=== PATIENT | female | born 1950 | race Caucasian/White ===

== ENCOUNTER 2016-10-19 15:47 | Emergency (ER) | payer MEDICARE, OTHER ==
[~2016-10-19] VITALS: Ht 160 cm; Wt 63.6 kg
[~2016-10-19 15:47] MED LIST: ARIP5TAB9 PO; BUSP15 PO; CALC1TAB84 PO; CITA10TA68 PO; FOLI1 PO; LEVO150 PO; MULT-29 PO; PANT40TA25 PO
[2016-10-19] MEDS ORDERED: GABA-533 PO (16:41)
[2016-10-19] MEDS ORDERED: NAPR250T2 PO (16:41)
[2016-10-19] MEDS ORDERED: CITA20TA9 PO (16:57)
[2016-10-19] MEDS ORDERED: HYDROCODONE/ACETAMINOPHEN 10-325 MG TABLET PO ONE (17:00)
[2016-10-19 18:06] VITALS: BP 121/86
== END 2016-10-19 18:07 | disposition home or self-care (01) ==
LOC: EMS 15:49
DX: S73.101A Unspecified sprain of right hip, initial encounter (principal); J44.9 Chronic obstructive pulmonary disease, unspecified; E03.9 Hypothyroidism, unspecified; G89.29 Other chronic pain; F17.210 Nicotine dependence, cigarettes, uncomplicated; F19.90 Other psychoactive substance use, unspecified, uncomplicated; Z88.0 Allergy status to penicillin
CPT/HCPCS: 99283

== ENCOUNTER 2016-10-19 22:46 | Emergency (ER) | payer MEDICARE, OTHER ==
[~2016-10-19] VITALS: Ht 152.4 cm; Wt 52.0 kg
[~2016-10-19 22:46] MED LIST changes: +CITA20TA9 PO; +GABA-533 PO; +NAPR250T2 PO
[2016-10-20] MEDS ORDERED: GABAPENTIN 400 MG CAPSULE PO ONE (04:15)
[2016-10-20] MEDS ORDERED: ONDANSETRON HCL 4 MG TABLET PO ONE (04:15)
[2016-10-20 05:31] VITALS: BP 122/78
== END 2016-10-20 05:42 | disposition home or self-care (01) ==
LOC: EMS 22:50
DX: M16.11 Unilateral primary osteoarthritis, right hip (principal); M79.604 Pain in right leg; J44.9 Chronic obstructive pulmonary disease, unspecified; E03.9 Hypothyroidism, unspecified; F17.210 Nicotine dependence, cigarettes, uncomplicated; F15.90 Other stimulant use, unspecified, uncomplicated; Z88.0 Allergy status to penicillin; Z59.0 Homelessness
CPT/HCPCS: 99283; Q0162

== ENCOUNTER 2016-10-20 16:06 | Emergency (ER) | payer MEDICARE, OTHER ==
[~2016-10-20] VITALS: Ht 149.9 cm; Wt 50.0 kg
[2016-10-20 19:40] VITALS: BP 118/78
[2016-10-20] MEDS ORDERED: ONDANSETRON HCL 4 MG TABLET PO ONE (19:45)
[2016-10-20] MEDS ORDERED: HYDROCODONE/ACETAMINOPHEN 5-325 MG TABLET PO ONE (19:45)
== END 2016-10-20 20:13 | disposition home or self-care (01) ==
LOC: EMS 16:10
DX: M54.5 Low back pain (principal); G89.29 Other chronic pain; J44.9 Chronic obstructive pulmonary disease, unspecified; E03.9 Hypothyroidism, unspecified; F17.210 Nicotine dependence, cigarettes, uncomplicated; F15.90 Other stimulant use, unspecified, uncomplicated; Z88.0 Allergy status to penicillin
CPT/HCPCS: 99283; Q0162

== ENCOUNTER 2016-10-26 19:38 | Emergency (ER) | payer MEDICARE, OTHER ==
[~2016-10-26] VITALS: Ht 157.5 cm; Wt 61.4 kg
[~2016-10-26 19:38] MED LIST changes: -CITA10TA68 PO; -PANT40TA25 PO
[2016-10-26] MEDS ORDERED: LORazepam 2 MG TABLET PO ONE (21:00)
[2016-10-26] MEDS ORDERED: ONDANSETRON HCL 4 MG TABLET PO ONE (21:00)
[2016-10-26 21:35] LABS: BASOPHILS % (AUTO) 0.7 % (0.0-2.0); EOSINOPHILS % (AUTO) 0.3 % (1.0-6.0); HEMATOCRIT 35.3 % (36-46); LYMPHOCYTES # (AUTO) 3.6 K/uL (1.0-4.8); LYMPHOCYTES % (AUTO) 52.8 % (22.0-44.0); MEAN CORPUSCULAR HEMOGLOBIN 31.8 pg (26.0-34.0); MEAN CORPUSCULAR HGB CONC 34.1 G/dL (31.0-37.0); MEAN CORPUSCULAR VOLUME 93 fL (80-100); MONOCYTES # (AUTO) 0.6 K/uL (0.1-1.0); MONOCYTES % (AUTO) 8.6 % (2.0-9.0); NEUTROPHILS # (AUTO) 2.6 K/uL (1.8-7.7); NEUTROPHILS % (AUTO) 37.6 % (40.0-70.0); PLATELET COUNT (AUTO) 260 K/uL (150-450); RED BLOOD CELL COUNT(AUTO) 3.78 MIL/uL (4.00-5.20); RED CELL DISTRIBUTION WIDTH 17.8 % (11.5-14.5); WHITE BLOOD COUNT (AUTO) 6.8 K/uL (4.5-11.0)
[2016-10-26 21:38] LABS: CALCIUM, TOTAL 8.7 mg/dL (8.8-10.5); CREATININE 1.11 mg/dL (0.60-1.30); POTASSIUM 4.1 mmol/L (3.5-5.1)
[2016-10-26 21:52] LABS: ALBUMIN 3.6 g/dL (3.4-5.0); BILIRUBIN,TOTAL 0.4 mg/dL (0.1-1.0); TOTAL PROTEIN, SERUM 7.6 g/dL (6.4-8.2)
[2016-10-26 22:36] VITALS: BP 122/82
== END 2016-10-26 22:38 | disposition home or self-care (01) ==
LOC: EMS 19:41
DX: F41.9 Anxiety disorder, unspecified (principal); R00.2 Palpitations; F10.229 Alcohol dependence with intoxication, unspecified; R11.0 Nausea; R19.7 Diarrhea, unspecified; J44.9 Chronic obstructive pulmonary disease, unspecified; F17.210 Nicotine dependence, cigarettes, uncomplicated; F19.90 Other psychoactive substance use, unspecified, uncomplicated; E03.9 Hypothyroidism, unspecified; Z88.0 Allergy status to penicillin; Y90.5 Blood alcohol level of 100-119 mg/100 ml
CPT/HCPCS: 36415; 80053; 84484; 85025; 93005; 99285; 99406; G0480; Q0162

== ENCOUNTER 2016-10-29 05:41 | Emergency (ER) | payer MEDICARE, OTHER ==
[~2016-10-29] VITALS: Ht 152.4 cm; Wt 54.5 kg
[2016-10-29 06:22] LABS: GLUCOSE,POINT OF CARE 94 MG/DL (70-110)
[2016-10-29 06:47] LABS: BASOPHILS # (AUTO) 0.05 K/uL (0.00-0.20); BASOPHILS % (AUTO) 0.7 % (0.0-2.0); EOSINOPHILS # (AUTO) 0.02 K/uL (0.00-0.70); EOSINOPHILS % (AUTO) 0.21 % (1.0-6.0); HEMATOCRIT 35.5 % (36-46); HEMOGLOBIN 11.8 g/dL (12.0-16.0); LYMPHOCYTES # (AUTO) 2.9 K/uL (1.0-4.8); LYMPHOCYTES % (AUTO) 40.1 % (22.0-44.0); MEAN CORPUSCULAR HEMOGLOBIN 31.7 pg (26.0-34.0); MEAN CORPUSCULAR HGB CONC 33.3 G/dL (31.0-37.0); MEAN CORPUSCULAR VOLUME 95 fL (80-100); MONOCYTES # (AUTO) 0.7 K/uL (0.1-1.0); MONOCYTES % (AUTO) 9.1 % (2.0-9.0); NEUTROPHILS # (AUTO) 3.6 K/uL (1.8-7.7); PLATELET COUNT (AUTO) 226 K/uL (150-450); RED BLOOD CELL COUNT(AUTO) 3.74 MIL/uL (4.00-5.20); RED CELL DISTRIBUTION WIDTH 17.8 % (11.5-14.5); WHITE BLOOD COUNT (AUTO) 7.2 K/uL (4.5-11.0)
[2016-10-29 06:55] LABS: CALCIUM, TOTAL 8.3 mg/dL (8.8-10.5); POTASSIUM 3.7 mmol/L (3.5-5.1)
[2016-10-29 07:01] LABS: ALBUMIN 3.2 g/dL (3.4-5.0); BILIRUBIN,TOTAL 0.4 mg/dL (0.1-1.0); TOTAL PROTEIN, SERUM 7.1 g/dL (6.4-8.2)
[2016-10-29] MEDS ORDERED: ONDANSETRON HCL 4 MG TABLET PO ONE (08:00)
[2016-10-29] MEDS ORDERED: LORazepam 1 MG TABLET PO ONE (08:00)
[2016-10-29 10:15] VITALS: BP 122/78
== END 2016-10-29 10:19 | disposition home or self-care (01) ==
LOC: EMS 05:45
DX: F10.229 Alcohol dependence with intoxication, unspecified (principal); J44.9 Chronic obstructive pulmonary disease, unspecified; E03.9 Hypothyroidism, unspecified; F17.210 Nicotine dependence, cigarettes, uncomplicated; F19.90 Other psychoactive substance use, unspecified, uncomplicated; Z88.0 Allergy status to penicillin; Y90.7 Blood alcohol level of 200-239 mg/100 ml
CPT/HCPCS: 36415; 80053; 80307; 82962; 85025; 99284; G0480; Q0162

== ENCOUNTER 2016-11-21 07:26 | Emergency (ER) | payer MEDICARE, OTHER ==
[~2016-11-21] VITALS: Ht 154.9 cm; Wt 54.5 kg
[~2016-11-21 07:26] MED LIST changes: -ARIP5TAB9 PO; +ASPI-1061 PO; +ATOR20TA86 PO; -BUSP15 PO; -CALC1TAB84 PO; -CITA20TA9 PO; -FOLI1 PO; -GABA-533 PO; -LEVO150 PO; +LEVO50TA4 PO; -MULT-29 PO; +MULT-71 PO; -NAPR250T2 PO; +OMEP20 PO
[2016-11-21] MEDS ORDERED: TraMADol HCL 50 MG TABLET PO ONE (07:45)
[2016-11-21] MEDS ORDERED: GABA-533 PO (07:49)
[2016-11-21 08:00] VITALS: BP 128/60
== END 2016-11-21 08:32 | disposition home or self-care (01) ==
LOC: EMS 07:29
DX: S20.212A Contusion of left front wall of thorax, initial encounter (principal); F41.9 Anxiety disorder, unspecified; F10.20 Alcohol dependence, uncomplicated; E03.9 Hypothyroidism, unspecified; J44.9 Chronic obstructive pulmonary disease, unspecified; F17.210 Nicotine dependence, cigarettes, uncomplicated; G89.29 Other chronic pain; F19.90 Other psychoactive substance use, unspecified, uncomplicated; Z88.6 Allergy status to analgesic agent; Z79.82 Long term (current) use of aspirin; Z88.0 Allergy status to penicillin; V09.9XXA Pedestrian injured in unspecified transport accident, initial encounter; Y93.89 Activity, other specified; Y92.810 Car as the place of occurrence of the external cause; Y99.8 Other external cause status
CPT/HCPCS: 99283; 99406

== ENCOUNTER 2016-12-05 10:48 | Emergency (ER) | payer MEDICARE, OTHER ==
[~2016-12-05] VITALS: Ht 149.9 cm; Wt 54.5 kg
[~2016-12-05 10:48] MED LIST changes: +GABA-533 PO; -MULT-71 PO; +MULT1TAB70 PO
[2016-12-05 11:56] LABS: BASOPHILS # (AUTO) 0.07 K/uL (0.00-0.20); BASOPHILS % (AUTO) 0.7 % (0.0-2.0); EOSINOPHILS # (AUTO) 0.14 K/uL (0.00-0.70); EOSINOPHILS % (AUTO) 1.41 % (1.0-6.0); HEMATOCRIT 34.2 % (36-46); HEMOGLOBIN 11.2 g/dL (12.0-16.0); LYMPHOCYTES # (AUTO) 1.5 K/uL (1.0-4.8); LYMPHOCYTES % (AUTO) 15.4 % (22.0-44.0); MEAN CORPUSCULAR HEMOGLOBIN 31.6 pg (26.0-34.0); MEAN CORPUSCULAR HGB CONC 32.7 G/dL (31.0-37.0); MEAN CORPUSCULAR VOLUME 97 fL (80-100); MONOCYTES # (AUTO) 0.6 K/uL (0.1-1.0); MONOCYTES % (AUTO) 6.6 % (2.0-9.0); NEUTROPHILS # (AUTO) 7.4 K/uL (1.8-7.7); PLATELET COUNT (AUTO) 404 K/uL (150-450); RED BLOOD CELL COUNT(AUTO) 3.53 MIL/uL (4.00-5.20); RED CELL DISTRIBUTION WIDTH 20.1 % (11.5-14.5); WHITE BLOOD COUNT (AUTO) 9.7 K/uL (4.5-11.0)
[2016-12-05] MEDS ORDERED: SODIUM CHLORIDE 0.9% 1,000 ML IV ONE (12:00)
[2016-12-05 12:05] LABS: CALCIUM, TOTAL 8.7 mg/dL (8.8-10.5); CREATININE 0.98 mg/dL (0.60-1.30)
[2016-12-05 12:10] LABS: ALBUMIN 2.7 g/dL (3.4-5.0); BILIRUBIN,TOTAL 0.5 mg/dL (0.1-1.0); TOTAL PROTEIN, SERUM 7.6 g/dL (6.4-8.2)
[2016-12-05 12:20] LABS: APPEARANCE,URINE CLOUDY (CLEAR); GLUCOSE, URINE (UA) NEGATIVE (NEGATIVE); KETONES,URINE NEGATIVE (NEGATIVE); LEUKOCYTE ESTERASE ,URINE MODERATE (NEGATIVE); OCCULT BLOOD,URINE NEGATIVE (NEGATIVE); PROTEIN,URINE TRACE (NEGATIVE)
[2016-12-05 12:24] LABS: ADD UA MICROSCOPIC YES
[2016-12-05 12:29] LABS: SQUAMOUS EPITHELIAL CELL,UR Few /LPF (None Seen)
[2016-12-05 12:31] LABS: RBC MORPHOLOGY COMMENT ABNORMAL RBC MORPH
[2016-12-05 17:03] VITALS: BP 149/67
== END 2016-12-05 18:39 | disposition home or self-care (01) ==
LOC: EMS 10:50
DX: F10.229 Alcohol dependence with intoxication, unspecified (principal); J44.9 Chronic obstructive pulmonary disease, unspecified; E03.9 Hypothyroidism, unspecified; F19.10 Other psychoactive substance abuse, uncomplicated; F17.210 Nicotine dependence, cigarettes, uncomplicated; Z79.82 Long term (current) use of aspirin; Z88.0 Allergy status to penicillin; Z88.6 Allergy status to analgesic agent
CPT/HCPCS: 36415; 70450; 80053; 80307; 81001; 82962; 85025; 85730; 87077; 87086; 87186; 93005; 96360; 99285; G0480; J7030

== ENCOUNTER 2017-01-06 10:26 | Emergency (ER) | payer MEDICARE ==
[~2017-01-06] VITALS: Ht 149.9 cm; Wt 45.5 kg
[~2017-01-06 10:26] MED LIST changes: -ASPI-1061 PO; +ASPI81TA33 PO
[2017-01-06 11:34] LABS: BASOPHILS % (AUTO) 0.5 % (0.0-2.0); EOSINOPHILS % (AUTO) 0.1 % (1.0-6.0); HEMATOCRIT 36.3 % (36-46); HEMOGLOBIN 12.1 g/dL (12.0-16.0); LYMPHOCYTES # (AUTO) 1.9 K/uL (1.0-4.8); LYMPHOCYTES % (AUTO) 19.2 % (22.0-44.0); MEAN CORPUSCULAR HEMOGLOBIN 32.6 pg (26.0-34.0); MEAN CORPUSCULAR HGB CONC 33.4 G/dL (31.0-37.0); MEAN CORPUSCULAR VOLUME 98 fL (80-100); MONOCYTES # (AUTO) 0.3 K/uL (0.1-1.0); MONOCYTES % (AUTO) 2.7 % (2.0-9.0); NEUTROPHILS # (AUTO) 7.7 K/uL (1.8-7.7); NEUTROPHILS % (AUTO) 77.5 % (40.0-70.0); PLATELET COUNT (AUTO) 267 K/uL (150-450); RED BLOOD CELL COUNT(AUTO) 3.72 MIL/uL (4.00-5.20); RED CELL DISTRIBUTION WIDTH 19.7 % (11.5-14.5); WHITE BLOOD COUNT (AUTO) 9.9 K/uL (4.5-11.0)
[2017-01-06 11:45] LABS: INR 0.9 (0.9-1.1); PROTHROMBIN TIME 9.7 SEC (9.4-11.6)
[2017-01-06] MEDS ORDERED: SODIUM CHLORIDE 0.9% 1,000 ML IV ONE (11:45)
[2017-01-06] MEDS ORDERED: DONNATAL/LIDOCAINE/MAALOX 55 ML BOTTLE PO ONE (11:45)
[2017-01-06] MEDS ORDERED: ONDANSETRON HCL 4 MG/2 ML VIAL IVP ONE (11:45)
[2017-01-06 11:54] LABS: CALCIUM, TOTAL 9.3 mg/dL (8.8-10.5); CREATININE 1.02 mg/dL (0.60-1.30); POTASSIUM 3.7 mmol/L (3.5-5.1)
[2017-01-06 11:57] LABS: ALBUMIN 2.8 g/dL (3.4-5.0); BILIRUBIN,TOTAL 0.7 mg/dL (0.1-1.0); TOTAL PROTEIN, SERUM 7.1 g/dL (6.4-8.2)
[2017-01-06 12:09] LABS: RBC MORPHOLOGY COMMENT ABNORMAL RBC MORPH
[2017-01-06 13:04] LABS: APPEARANCE,URINE CLOUDY (CLEAR); GLUCOSE, URINE (UA) NEGATIVE (NEGATIVE); KETONES,URINE >=80 mg/dL (NEGATIVE); LEUKOCYTE ESTERASE ,URINE MODERATE (NEGATIVE); OCCULT BLOOD,URINE TRACE (NEGATIVE); PROTEIN,URINE TRACE (NEGATIVE)
[2017-01-06 13:07] LABS: ADD UA MICROSCOPIC YES
[2017-01-06 13:10] LABS: RBC,URINE 0-2 /HPF (0-2); SQUAMOUS EPITHELIAL CELL,UR Many /LPF (None Seen); WBC,URINE 26-50 /HPF (0-5)
[2017-01-06] MEDS ORDERED: CIPROFLOXACIN 400 MG/D5% WATER 200 ML IV ONE (14:00)
[2017-01-06] MEDS ORDERED: PANTOPRAZOLE SODIUM 40 MG/VIAL IVP ONE (14:30)
[2017-01-06 15:24] VITALS: BP 120/74
== END 2017-01-06 15:46 | disposition home or self-care (01) ==
LOC: EMS 10:28
DX: R10.13 Epigastric pain (principal); N39.0 Urinary tract infection, site not specified; K25.9 Gastric ulcer, unspecified as acute or chronic, without hemorrhage or perforation; J44.9 Chronic obstructive pulmonary disease, unspecified; F17.210 Nicotine dependence, cigarettes, uncomplicated; F10.20 Alcohol dependence, uncomplicated; E03.9 Hypothyroidism, unspecified; F15.90 Other stimulant use, unspecified, uncomplicated; Z59.0 Homelessness
CPT/HCPCS: 36415; 74022; 80053; 80307; 81001; 83690; 84484; 85025; 85610; 85730; 87077; 87086; 87186; 93005; 96361; 96365; 96375; 99285; 99406; C9113; G0480; J0744; J2405; J7030

== ENCOUNTER 2017-01-28 11:01 | Emergency (ER) | payer MEDICARE ==
[~2017-01-28] VITALS: Ht 149.9 cm; Wt 59.1 kg
[2017-01-28] MEDS ORDERED: CITA20TA9 PO (11:19)
[2017-01-28 11:22] LABS: GLUCOSE,POINT OF CARE 178 MG/DL (70-110)
[2017-01-28] MEDS ORDERED: ACETAMINOPHEN 325 MG TABLET PO ONE (11:30)
[2017-01-28 12:28] VITALS: BP 107/61
== END 2017-01-28 13:12 | disposition home or self-care (01) ==
LOC: EMS 11:03
DX: F10.20 Alcohol dependence, uncomplicated (principal); G89.29 Other chronic pain; M25.552 Pain in left hip; M25.551 Pain in right hip; M25.561 Pain in right knee; M25.562 Pain in left knee; J44.9 Chronic obstructive pulmonary disease, unspecified; E03.9 Hypothyroidism, unspecified; F17.210 Nicotine dependence, cigarettes, uncomplicated; F19.90 Other psychoactive substance use, unspecified, uncomplicated; Z59.0 Homelessness; Z88.0 Allergy status to penicillin; Z88.6 Allergy status to analgesic agent
CPT/HCPCS: 82962; 99283

== ENCOUNTER 2017-01-29 17:20 | Emergency (ER) | payer MEDICARE ==
[~2017-01-29] VITALS: Ht 149.9 cm; Wt 45.5 kg
[~2017-01-29 17:20] MED LIST changes: -ASPI81TA33 PO; -ATOR20TA86 PO; +CITA20TA9 PO; -MULT1TAB70 PO
[2017-01-29 18:20] VITALS: BP 120/74
[2017-01-29] MEDS ORDERED: ONDANSETRON HCL 4 MG TABLET PO ONE (19:15)
[2017-01-29] MEDS ORDERED: ACETAMINOPHEN 325 MG TABLET PO ONE (19:15)
== END 2017-01-29 19:53 | disposition home or self-care (01) ==
LOC: EMS 17:22
DX: M25.562 Pain in left knee (principal); M25.561 Pain in right knee; G89.29 Other chronic pain; F10.20 Alcohol dependence, uncomplicated; J44.9 Chronic obstructive pulmonary disease, unspecified; E03.9 Hypothyroidism, unspecified; F19.90 Other psychoactive substance use, unspecified, uncomplicated; F17.210 Nicotine dependence, cigarettes, uncomplicated; Z88.0 Allergy status to penicillin; Z88.6 Allergy status to analgesic agent
CPT/HCPCS: 99283; Q0162

== ENCOUNTER 2017-02-02 01:48 | Inpatient (IN) | payer MEDICARE ==
[~2017-02-02] VITALS: Ht 149.9 cm; Wt 45.1 kg
[2017-02-02 02:39] LABS: HEMATOCRIT 42.4 % (36-46); HEMOGLOBIN 14.1 g/dL (12.0-16.0); MEAN CORPUSCULAR HEMOGLOBIN 32.3 pg (26.0-34.0); MEAN CORPUSCULAR HGB CONC 33.3 G/dL (31.0-37.0); MEAN CORPUSCULAR VOLUME 97 fL (80-100); PLATELET COUNT (AUTO) 212 K/uL (150-450); RED BLOOD CELL COUNT(AUTO) 4.37 MIL/uL (4.00-5.20); RED CELL DISTRIBUTION WIDTH 19.2 % (11.5-14.5)
[2017-02-02 02:45] LABS: CALCIUM, TOTAL 11.1 mg/dL (8.8-10.5); POTASSIUM 3.8 mmol/L (3.5-5.1)
[2017-02-02 02:53] LABS: APPEARANCE,URINE CLOUDY (CLEAR); GLUCOSE, URINE (UA) NEGATIVE (NEGATIVE); KETONES,URINE >=80 mg/dL (NEGATIVE); LEUKOCYTE ESTERASE ,URINE NEGATIVE (NEGATIVE); OCCULT BLOOD,URINE NEGATIVE (NEGATIVE); PROTEIN,URINE TRACE (NEGATIVE)
[2017-02-02 02:55] LABS: ALBUMIN 3.4 g/dL (3.4-5.0); BILIRUBIN,TOTAL 0.9 mg/dL (0.1-1.0); TOTAL PROTEIN, SERUM 7.8 g/dL (6.4-8.2)
[2017-02-02 03:00] LABS: INR 0.9 (0.9-1.1); PROTHROMBIN TIME 9.3 SEC (9.4-11.6)
[2017-02-02 03:09] LABS: ADD UA MICROSCOPIC YES
[2017-02-02 03:13] LABS: BAND NEUTROPHILS % (MANUAL) 10 % (1-5); LYMPHOCYTES % (MANUAL) 18 % (22-44); RBC MORPHOLOGY COMMENT ABNORMAL RBC MORPH; TOTAL CELLS COUNTED 100
[2017-02-02 03:16] LABS: RBC,URINE None Seen /HPF (0-2); SQUAMOUS EPITHELIAL CELL,UR Few /LPF (None Seen)
[2017-02-02] MEDS ORDERED: PANTOPRAZOLE SODIUM 40 MG/VIAL IVP ONE (04:00)
[2017-02-02] MEDS ORDERED: SODIUM CHLORIDE 0.9% 1,000 ML IV ONE ×3 (04:00→11:15)
[2017-02-02] MEDS ORDERED: PANTOPRAZOLE SODIUM 80 MG in SODIUM CHLORIDE 0.9% 100 ML IV SCH ×2 (04:15→06:45)
[2017-02-02] MEDS ORDERED: METOCLOPRAMIDE HCL 5 MG/ML 2 ML VIAL IVP ONE (04:15)
[2017-02-02 04:17] LABS: BILIRUBIN,DIRECT 0.2 mg/dL (0.00-0.20)
[2017-02-02] MEDS ORDERED: CefTRIAXone 1 GM/DEXTROSE 50 ML IV ONE ×2 (05:45→18:00)
[2017-02-02] MEDS ORDERED: ONDANSETRON HCL 4 MG/2 ML VIAL IVP PRN (06:45)
[2017-02-02] MEDS ORDERED: METOCLOPRAMIDE HCL 5 MG/ML 2 ML VIAL IVP PRN (06:45)
[2017-02-02] MEDS ORDERED: MORPHINE SULFATE 2 MG/ML SYRINGE IVP PRN (06:45)
[2017-02-02 08:22] VITALS: BP 126/65
[2017-02-02 09:00] VITALS: BP 126/65
[2017-02-02] MEDS ORDERED: ACETAMINOPHEN 325 MG TABLET PO PRN (10:00)
[2017-02-02] MEDS ORDERED: ALBUTEROL SULFATE 2.5 MG/0.5 ML NEB SOLUTION NEB PRN (10:00)
[2017-02-02] MEDS ORDERED: MAGNESIUM HYDROXIDE SUSPENSION 30 ML UDCUP PO PRN (10:00)
[2017-02-02 10:55] LABS: EOSINOPHILS % (AUTO) 0.04 % (1.0-6.0); HEMOGLOBIN 11.2 g/dL (12.0-16.0); LYMPHOCYTES # (AUTO) 1.5 K/uL (1.0-4.8); LYMPHOCYTES % (AUTO) 20.4 % (22.0-44.0); MEAN CORPUSCULAR HEMOGLOBIN 32.6 pg (26.0-34.0); MEAN CORPUSCULAR HGB CONC 32.9 G/dL (31.0-37.0); MEAN CORPUSCULAR VOLUME 99 fL (80-100); MONOCYTES # (AUTO) 0.6 K/uL (0.1-1.0); MONOCYTES % (AUTO) 7.9 % (2.0-9.0); NEUTROPHILS # (AUTO) 5.3 K/uL (1.8-7.7); NEUTROPHILS % (AUTO) 71.6 % (40.0-70.0); PLATELET COUNT (AUTO) 177 K/uL (150-450); RED BLOOD CELL COUNT(AUTO) 3.43 MIL/uL (4.00-5.20); RED CELL DISTRIBUTION WIDTH 18.8 % (11.5-14.5); WHITE BLOOD COUNT (AUTO) 7.5 K/uL (4.5-11.0)
[2017-02-02 11:08] LABS: ALBUMIN 2.7 g/dL (3.4-5.0); BILIRUBIN,TOTAL 0.8 mg/dL (0.1-1.0); CALCIUM, TOTAL 9.1 mg/dL (8.8-10.5); CREATININE 0.99 mg/dL (0.60-1.30); POTASSIUM 3.2 mmol/L (3.5-5.1); TOTAL PROTEIN, SERUM 6.6 g/dL (6.4-8.2)
[2017-02-02 11:15] VITALS: BP 132/87
[2017-02-02 11:42] LABS: RBC MORPHOLOGY COMMENT ABNORMAL RBC MORPH
[2017-02-02] MEDS ORDERED: -PHARMACY VACCINE NOTE- MISC ONE ×2 (13:30)
[2017-02-02] MEDS: SUCRALFATE 1 GM/10 ML SUSPENSION UDCUP PO SCH ×2 (15:00→18:49)
[2017-02-02] MEDS: PANTOPRAZOLE SODIUM 80 MG in SODIUM CHLORIDE 0.9% 100 ML IV SCH (15:01)
[2017-02-02] MEDS ORDERED: POTASSIUM CHL 10 MEQ/WATER 50 ML IV PRN (15:45)
[2017-02-02] MEDS ORDERED: MAGNESIUM SULFATE 4 GM/WATER 100 ML IV PRN (15:45)
[2017-02-02] MEDS ORDERED: MAGNESIUM SULFATE 2 GM in DEXTROSE 5%-WATER 50 ML IV PRN (15:45)
[2017-02-02] MEDS ORDERED: MAGNESIUM OXIDE 400 MG TABLET PO PRN (15:45)
[2017-02-02] MEDS: POTASSIUM CHLORIDE 20 MEQ ER TABLET PO PRN ×2 (16:28→17:30)
[2017-02-02 16:37] VITALS: BP 115/60
[2017-02-02] MEDS: ONDANSETRON HCL 4 MG/2 ML VIAL IVP PRN (17:51)
[2017-02-02 20:06] VITALS: BP 105/60
[2017-02-02] MEDS ORDERED: SODIUM CHLORIDE 0.9% 0 ML IV ONE (20:06)
[2017-02-02] MEDS: DOCUSATE SODIUM 100 MG CAPSULE PO SCH (20:14)
[2017-02-02 23:48] VITALS: BP 101/65
[2017-02-03] VITALS (7 sets, daily range): BP systolic 90–135; BP diastolic 47–66
[2017-02-03] MEDS: DEXTRAN 70 0.1%/HYPROMELL 0.3% 0.9 ML OPHTHALMIC SOLUTION [PF] OU SCH ×5 (00:17→17:56)
[2017-02-03] MEDS: PANTOPRAZOLE SODIUM 80 MG in SODIUM CHLORIDE 0.9% 100 ML IV SCH ×2 (00:17→10:55)
[2017-02-03] MEDS: ONDANSETRON HCL 4 MG/2 ML VIAL IVP PRN ×4 (00:17→21:00)
[2017-02-03] MEDS: SUCRALFATE 1 GM/10 ML SUSPENSION UDCUP PO SCH ×4 (00:17→17:56)
[2017-02-03 06:25] LABS: EOSINOPHILS % (AUTO) 0.7 % (1.0-6.0); HEMATOCRIT 33.8 % (36-46); HEMOGLOBIN 11.4 g/dL (12.0-16.0); LYMPHOCYTES # (AUTO) 2.2 K/uL (1.0-4.8); LYMPHOCYTES % (AUTO) 39.1 % (22.0-44.0); MEAN CORPUSCULAR HEMOGLOBIN 33.2 pg (26.0-34.0); MEAN CORPUSCULAR HGB CONC 33.6 G/dL (31.0-37.0); MEAN CORPUSCULAR VOLUME 99 fL (80-100); MONOCYTES # (AUTO) 0.4 K/uL (0.1-1.0); MONOCYTES % (AUTO) 7.4 % (2.0-9.0); NEUTROPHILS % (AUTO) 52.8 % (40.0-70.0); PLATELET COUNT (AUTO) 169 K/uL (150-450); RED BLOOD CELL COUNT(AUTO) 3.42 MIL/uL (4.00-5.20); RED CELL DISTRIBUTION WIDTH 19.2 % (11.5-14.5); WHITE BLOOD COUNT (AUTO) 5.7 K/uL (4.5-11.0)
[2017-02-03 06:46] LABS: CALCIUM, TOTAL 8.7 mg/dL (8.8-10.5); CREATININE 0.93 mg/dL (0.60-1.30); POTASSIUM 3.6 mmol/L (3.5-5.1)
[2017-02-03 08:51] LABS: RBC MORPHOLOGY COMMENT ABNORMAL RBC MORPH
[2017-02-03] MEDS: DOCUSATE SODIUM 100 MG CAPSULE PO SCH ×2 (09:08→20:08)
[2017-02-03] MEDS ORDERED: POTASSIUM CHLORIDE 20 MEQ ER TABLET PO PRN (09:30)
[2017-02-03] MEDS: PANTOPRAZOLE SODIUM 40 MG/VIAL IVP SCH (20:08)
[2017-02-04] MEDS: DEXTRAN 70 0.1%/HYPROMELL 0.3% 0.9 ML OPHTHALMIC SOLUTION [PF] OU SCH ×3 (01:07→13:01)
[2017-02-04] MEDS: SUCRALFATE 1 GM/10 ML SUSPENSION UDCUP PO SCH ×3 (01:07→13:01)
[2017-02-04] MEDS: ONDANSETRON HCL 4 MG/2 ML VIAL IVP PRN ×3 (03:22→13:51)
[2017-02-04 05:05] VITALS: BP 117/54
[2017-02-04] MEDS ORDERED: PROPOFOL 1% 20 ML VIAL IVP ONE (05:20)
[2017-02-04] MEDS ORDERED: LIDOCAINE HCL/PF 2% 5 ML VIAL IM ONE (05:20)
[2017-02-04 07:51] VITALS: BP 95/53
[2017-02-04] MEDS: DOCUSATE SODIUM 100 MG CAPSULE PO SCH (08:44)
[2017-02-04] MEDS: PANTOPRAZOLE SODIUM 40 MG/VIAL IVP SCH ×2 (08:44→13:51)
[2017-02-04] MEDS ORDERED: MULTIVITAMINS WITH MINERALS, THERAPEUTIC TABLET PO SCH (09:00)
[2017-02-04] MEDS ORDERED: THIAMINE HCL 100 MG/ML 2ML VIAL IM SCH (09:00)
[2017-02-04] MEDS ORDERED: FOLIC ACID 1 MG TABLET PO SCH (09:00)
[2017-02-04] MEDS ORDERED: INFLUENZA VIRUS VACCINE QVS 2017-18 (3YR+)/PF 60 MCG/0.5 ML SYRINGE IM ONE (09:15)
[2017-02-04 11:35] VITALS: BP 101/61
== END 2017-02-04 14:15 | disposition home or self-care (01) | DRG 377 ==
LOC: EMS 01:50 → 5S 06:24 → 6N 02-03 16:30
PROVIDERS: ADMIT Internal Medicine; ATTEND Internal Medicine
PROC: 0DB68ZX Excision of Stomach, Via Natural or Artificial Opening Endoscopic, Diagnostic (ICD-10-PCS; principal; 2017-02-02 12:15)
PROC: 3E0234Z Introduction of Serum, Toxoid and Vaccine into Muscle, Percutaneous Approach (ICD-10-PCS; 2017-02-04)
DX: K92.0 Hematemesis (principal); E43 Unspecified severe protein-calorie malnutrition; R64 Cachexia; Z68.1 Body mass index [BMI] 19.9 or less, adult; N39.0 Urinary tract infection, site not specified; K92.2 Gastrointestinal hemorrhage, unspecified; K20.9 Esophagitis, unspecified; F17.210 Nicotine dependence, cigarettes, uncomplicated; F32.9 Major depressive disorder, single episode, unspecified; F41.9 Anxiety disorder, unspecified; G89.29 Other chronic pain; F19.10 Other psychoactive substance abuse, uncomplicated; Z91.19 Patient's noncompliance with other medical treatment and regimen; M19.90 Unspecified osteoarthritis, unspecified site; J44.9 Chronic obstructive pulmonary disease, unspecified; E86.0 Dehydration; E03.9 Hypothyroidism, unspecified; Z87.11 Personal history of peptic ulcer disease; Z87.01 Personal history of pneumonia (recurrent); Z59.0 Homelessness; Z88.0 Allergy status to penicillin; Z88.8 Allergy status to other drugs, medicaments and biological substances; Z79.82 Long term (current) use of aspirin; Z79.899 Other long term (current) drug therapy; F10.10 Alcohol abuse, uncomplicated; Y90.0 Blood alcohol level of less than 20 mg/100 ml; Z23 Encounter for immunization
CPT/HCPCS: 74000; 82248; 82271; 84132; 87086; 88305; 88312; 90471; 96365; 96366; 96368; 96375; 99285; C9113; G0480; J0696; J2405; J2704; J2765; J3411; J3490; J7030; J7050

== ENCOUNTER 2017-02-19 08:40 | Emergency (ER) | payer MEDICARE ==
[~2017-02-19] VITALS: Ht 149.9 cm; Wt 45.5 kg
[~2017-02-19 08:40] MED LIST changes: -CITA20TA9 PO; -GABA-533 PO; -LEVO50TA4 PO
[2017-02-19] MEDS ORDERED: LEVO25TA9 PO (08:59)
[2017-02-19] MEDS ORDERED: LORA0.5T2 PO (08:59)
[2017-02-19] MEDS ORDERED: CITA10TA68 PO (08:59)
[2017-02-19] MEDS ORDERED: GABA-529 PO (08:59)
[2017-02-19] MEDS ORDERED: BARIUM SULFATE 0.1% SUSPENSION 450 ML BOTTLE PO ONE (09:15)
[2017-02-19] MEDS ORDERED: ONDANSETRON HCL 4 MG/2 ML VIAL IVP ONE (09:15)
[2017-02-19] MEDS ORDERED: SODIUM CHLORIDE 0.9% 1,000 ML IV ONE (09:15)
[2017-02-19] MEDS ORDERED: ACETAMINOPHEN 1000 MG/ISO-OSM 100 ML IV ONE (09:15)
[2017-02-19 09:46] LABS: BASOPHILS # (AUTO) 0.08 K/uL (0.00-0.20); BASOPHILS % (AUTO) 1.3 % (0.0-2.0); EOSINOPHILS # (AUTO) 0.04 K/uL (0.00-0.70); EOSINOPHILS % (AUTO) 0.71 % (1.0-6.0); HEMATOCRIT 35.8 % (36-46); HEMOGLOBIN 11.9 g/dL (12.0-16.0); LYMPHOCYTES # (AUTO) 1.6 K/uL (1.0-4.8); LYMPHOCYTES % (AUTO) 26.3 % (22.0-44.0); MEAN CORPUSCULAR HEMOGLOBIN 33.2 pg (26.0-34.0); MEAN CORPUSCULAR HGB CONC 33.1 G/dL (31.0-37.0); MEAN CORPUSCULAR VOLUME 100 fL (80-100); MONOCYTES # (AUTO) 0.3 K/uL (0.1-1.0); MONOCYTES % (AUTO) 5.1 % (2.0-9.0); NEUTROPHILS % (AUTO) 66.6 % (40.0-70.0); PLATELET COUNT (AUTO) 411 K/uL (150-450); RED BLOOD CELL COUNT(AUTO) 3.57 MIL/uL (4.00-5.20); RED CELL DISTRIBUTION WIDTH 18.9 % (11.5-14.5)
[2017-02-19 09:56] LABS: CALCIUM, TOTAL 8.5 mg/dL (8.8-10.5); CREATININE 1.15 mg/dL (0.60-1.30); POTASSIUM 3.8 mmol/L (3.5-5.1)
[2017-02-19 10:01] LABS: ALBUMIN 2.7 g/dL (3.4-5.0); BILIRUBIN,TOTAL 0.3 mg/dL (0.1-1.0)
[2017-02-19 10:28] LABS: RBC MORPHOLOGY COMMENT ABNORMAL RBC MORPH
[2017-02-19] MEDS ORDERED: IOVERSOL 320 MG/ML 100 ML VIAL ONE (10:55)
[2017-02-19 13:52] VITALS: BP 100/62
== END 2017-02-19 13:54 | disposition home or self-care (01) ==
LOC: EMS 08:42
DX: R10.11 Right upper quadrant pain (principal); R10.31 Right lower quadrant pain; J44.9 Chronic obstructive pulmonary disease, unspecified; E03.9 Hypothyroidism, unspecified; F15.90 Other stimulant use, unspecified, uncomplicated; F17.210 Nicotine dependence, cigarettes, uncomplicated; Z88.0 Allergy status to penicillin; Z88.8 Allergy status to other drugs, medicaments and biological substances
CPT/HCPCS: 36415; 71010; 74177; 80053; 83690; 84484; 85025; 93005; 96365; 96366; 96375; 99285; 99406; J0131; J2405; J7030; Q9967

== ENCOUNTER 2017-07-27 22:32 | Emergency (ER) | payer MEDICARE ==
[~2017-07-27] VITALS: Ht 149.9 cm; Wt 47.7 kg
[~2017-07-27 22:32] MED LIST changes: +CITA20TA9 PO; +GABA-529 PO; +LEVO100 PO; +LORA0.5T2 PO; +TRAZ-147 PO
[2017-07-27] MEDS ORDERED: LORA1TAB3 PO (22:42)
[2017-07-28] MEDS ORDERED: LORazepam 2 MG/ML VIAL IM ONE (01:15)
[2017-07-28] MEDS ORDERED: HYDROCODONE/ACETAMINOPHEN 5-325 MG TABLET PO ONE (01:15)
[2017-07-28 01:41] VITALS: BP 119/76
== END 2017-07-28 01:42 | disposition home or self-care (01) ==
LOC: EMS 22:36
DX: F19.239 Other psychoactive substance dependence with withdrawal, unspecified (principal); G89.4 Chronic pain syndrome; J44.9 Chronic obstructive pulmonary disease, unspecified; E03.9 Hypothyroidism, unspecified; F15.90 Other stimulant use, unspecified, uncomplicated; F17.210 Nicotine dependence, cigarettes, uncomplicated; Z88.0 Allergy status to penicillin; Z88.8 Allergy status to other drugs, medicaments and biological substances
CPT/HCPCS: 96372; 99283; J2060

== ENCOUNTER 2017-07-28 14:15 | Emergency (ER) | payer MEDICARE ==
[~2017-07-28] VITALS: Ht 149.9 cm; Wt 46.8 kg
[~2017-07-28 14:15] MED LIST changes: -LORA0.5T2 PO; +LORA1TAB3 PO
[2017-07-28] MEDS ORDERED: SODIUM CHLORIDE 0.9% 1,000 ML IV ONE (14:45)
[2017-07-28 15:03] LABS: BASOPHILS % (AUTO) 0.4 % (0.0-2.0); EOSINOPHILS % (AUTO) 0.4 % (1.0-6.0); HEMATOCRIT 31.6 % (36-46); HEMOGLOBIN 10.5 g/dL (12.0-16.0); LYMPHOCYTES # (AUTO) 3.3 K/uL (1.0-4.8); LYMPHOCYTES % (AUTO) 36.5 % (22.0-44.0); MEAN CORPUSCULAR HEMOGLOBIN 28.3 pg (26.0-34.0); MEAN CORPUSCULAR HGB CONC 33.3 G/dL (31.0-37.0); MEAN CORPUSCULAR VOLUME 85 fL (80-100); MONOCYTES # (AUTO) 0.8 K/uL (0.1-1.0); MONOCYTES % (AUTO) 8.3 % (2.0-9.0); NEUTROPHILS # (AUTO) 4.9 K/uL (1.8-7.7); NEUTROPHILS % (AUTO) 54.4 % (40.0-70.0); PLATELET COUNT (AUTO) 293 K/uL (150-450); RED BLOOD CELL COUNT(AUTO) 3.72 MIL/uL (4.00-5.20); RED CELL DISTRIBUTION WIDTH 16.4 % (11.5-14.5)
[2017-07-28 15:25] LABS: ANION GAP 12 mmol/L (8-16); CALCIUM, TOTAL 8.7 mg/dL (8.8-10.5); CARBON DIOXIDE 22 mmol/L (22-29); CHLORIDE 99 mmol/L (98-107); CREATININE 0.69 mg/dL (0.60-1.30); GLOMERULAR FILTR. RATE CALC > 60 mL/min (>60); GLUCOSE,RANDOM 84 mg/dL (70-110); POTASSIUM 3.2 mmol/L (3.5-5.1); SODIUM SERUM 133 mmol/L (136-145); UREA NITROGEN, BLOOD 7 mg/dL (7-18)
[2017-07-28 15:31] LABS: ALANINE AMINOTRANSFERASE 14 U/L (12-78); ALBUMIN 3.5 g/dL (3.4-5.0); ALKALINE PHOSPHATASE 80 U/L (46-116); ASPARTATE AMINOTRANSFERASE 14 U/L (15-37); BILIRUBIN,TOTAL 0.3 mg/dL (0.1-1.0)
[2017-07-28 18:25] VITALS: BP 110/76
== END 2017-07-28 19:11 | disposition home or self-care (01) ==
LOC: EMS 14:16
DX: F10.129 Alcohol abuse with intoxication, unspecified (principal); E03.9 Hypothyroidism, unspecified; F41.9 Anxiety disorder, unspecified; J44.9 Chronic obstructive pulmonary disease, unspecified; F15.10 Other stimulant abuse, uncomplicated; F17.210 Nicotine dependence, cigarettes, uncomplicated; Z59.0 Homelessness; Z87.11 Personal history of peptic ulcer disease; Z87.19 Personal history of other diseases of the digestive system; Z88.0 Allergy status to penicillin
CPT/HCPCS: 36415; 80053; 85025; 96360; 99284; G0480; J7030

== ENCOUNTER 2017-07-28 23:44 | Emergency (ER) | payer MEDICARE ==
[~2017-07-28] VITALS: Ht 149.9 cm; Wt 46.0 kg
[2017-07-29] MEDS ORDERED: HYDROCODONE/ACETAMINOPHEN 5-325 MG TABLET PO ONE (01:45)
[2017-07-29] MEDS ORDERED: LIDOCAINE HCL 1% 10 ML VIAL INJ ONE (02:45)
[2017-07-29 04:33] VITALS: BP 134/82
== END 2017-07-29 04:34 | disposition home or self-care (01) ==
LOC: EMS 23:45
DX: S62.616A Displaced fracture of proximal phalanx of right little finger, initial encounter for closed fracture (principal); J44.9 Chronic obstructive pulmonary disease, unspecified; E03.9 Hypothyroidism, unspecified; F17.210 Nicotine dependence, cigarettes, uncomplicated; F19.90 Other psychoactive substance use, unspecified, uncomplicated; Z59.0 Homelessness; Z88.6 Allergy status to analgesic agent; Z88.0 Allergy status to penicillin; Z76.0 Encounter for issue of repeat prescription; W19.XXXA Unspecified fall, initial encounter; Y93.89 Activity, other specified; Y92.89 Other specified places as the place of occurrence of the external cause; Y99.8 Other external cause status
CPT/HCPCS: 26770; 73140; 99284; J3490

== ENCOUNTER 2017-08-01 12:57 | Emergency (ER) | payer MEDICARE ==
[~2017-08-01 12:57] MED LIST changes: -TRAZ-147 PO
== END 2017-08-01 14:22 | disposition left against medical advice (07) ==
LOC: EMS 12:58
DX: M79.643 Pain in unspecified hand (principal); Z53.21 Procedure and treatment not carried out due to patient leaving prior to being seen by health care provider

== ENCOUNTER 2017-08-01 19:18 | Emergency (ER) | payer MEDICARE ==
[~2017-08-01] VITALS: Ht 162.6 cm; Wt 63.6 kg
[2017-08-01 23:49] VITALS: BP 124/71
== END 2017-08-01 23:57 | disposition home or self-care (01) ==
LOC: EMS 19:20
DX: T51.0X1A Toxic effect of ethanol, accidental (unintentional), initial encounter (principal); F10.239 Alcohol dependence with withdrawal, unspecified; J44.9 Chronic obstructive pulmonary disease, unspecified; E03.9 Hypothyroidism, unspecified; F17.210 Nicotine dependence, cigarettes, uncomplicated; F19.90 Other psychoactive substance use, unspecified, uncomplicated; Z59.0 Homelessness; Z88.6 Allergy status to analgesic agent; Z88.0 Allergy status to penicillin
CPT/HCPCS: 36415; 99284; G0480

== ENCOUNTER 2017-08-02 18:48 | Emergency (ER) | payer MEDICARE ==
[~2017-08-02] VITALS: Ht 149.9 cm; Wt 47.7 kg
[2017-08-02 19:33] VITALS: BP 118/78
[2017-08-02] MEDS ORDERED: HYDROCODONE/ACETAMINOPHEN 5-325 MG TABLET PO ONE (19:45)
[2017-08-02] MEDS ORDERED: LORazepam 1 MG TABLET PO ONE (19:45)
== END 2017-08-02 19:48 | disposition home or self-care (01) ==
LOC: EMS 18:49
DX: S62.616G Displaced fracture of proximal phalanx of right little finger, subsequent encounter for fracture with delayed healing (principal); F41.9 Anxiety disorder, unspecified; J44.9 Chronic obstructive pulmonary disease, unspecified; F10.10 Alcohol abuse, uncomplicated; E03.9 Hypothyroidism, unspecified; F19.90 Other psychoactive substance use, unspecified, uncomplicated; F17.210 Nicotine dependence, cigarettes, uncomplicated; Z59.0 Homelessness; Z88.6 Allergy status to analgesic agent; Z88.0 Allergy status to penicillin; X58.XXXD Exposure to other specified factors, subsequent encounter
CPT/HCPCS: 99283; 99406

== ENCOUNTER 2017-08-03 12:40 | Emergency (ER) | payer MEDICARE ==
[~2017-08-03] VITALS: Ht 154.9 cm; Wt 52.3 kg
[2017-08-03 15:07] VITALS: BP 110/73
[2017-08-03] MEDS ORDERED: HYDROCODONE/ACETAMINOPHEN 5-325 MG TABLET PO ONE (15:30)
== END 2017-08-03 15:40 | disposition home or self-care (01) ==
LOC: EMS 12:41
DX: S62.616D Displaced fracture of proximal phalanx of right little finger, subsequent encounter for fracture with routine healing (principal); J44.9 Chronic obstructive pulmonary disease, unspecified; E03.9 Hypothyroidism, unspecified; F41.9 Anxiety disorder, unspecified; F17.210 Nicotine dependence, cigarettes, uncomplicated; F15.90 Other stimulant use, unspecified, uncomplicated; Z76.0 Encounter for issue of repeat prescription; Z88.0 Allergy status to penicillin; Z88.8 Allergy status to other drugs, medicaments and biological substances; W18.39XD Other fall on same level, subsequent encounter
CPT/HCPCS: 99283

== ENCOUNTER 2017-08-05 01:11 | Emergency (ER) | payer MEDICARE ==
[~2017-08-05] VITALS: Ht 165.1 cm; Wt 59.1 kg
[2017-08-05] MEDS ORDERED: ACETAMINOPHEN 325 MG TABLET PO ONE (06:45)
[2017-08-05 06:57] LABS: BASOPHILS % (AUTO) 0.7 % (0.0-2.0); EOSINOPHILS % (AUTO) 2.4 % (1.0-6.0); HEMATOCRIT 36.1 % (36-46); LYMPHOCYTES % (AUTO) 34.6 % (22.0-44.0); MEAN CORPUSCULAR HEMOGLOBIN 28.6 pg (26.0-34.0); MEAN CORPUSCULAR HGB CONC 33.1 G/dL (31.0-37.0); MEAN CORPUSCULAR VOLUME 87 fL (80-100); MONOCYTES # (AUTO) 0.8 K/uL (0.1-1.0); MONOCYTES % (AUTO) 9.6 % (2.0-9.0); NEUTROPHILS # (AUTO) 4.6 K/uL (1.8-7.7); NEUTROPHILS % (AUTO) 52.7 % (40.0-70.0); PLATELET COUNT (AUTO) 297 K/uL (150-450); RED BLOOD CELL COUNT(AUTO) 4.17 MIL/uL (4.00-5.20); RED CELL DISTRIBUTION WIDTH 18.3 % (11.5-14.5)
[2017-08-05 07:08] LABS: ANION GAP 10 mmol/L (8-16); CALCIUM, TOTAL 8.8 mg/dL (8.8-10.5); CARBON DIOXIDE 26 mmol/L (22-29); CHLORIDE 107 mmol/L (98-107); CREATININE 0.75 mg/dL (0.60-1.30); GLOMERULAR FILTR. RATE CALC > 60 mL/min (>60); GLUCOSE,RANDOM 80 mg/dL (70-110); POTASSIUM 3.8 mmol/L (3.5-5.1); SODIUM SERUM 143 mmol/L (136-145); UREA NITROGEN, BLOOD 9 mg/dL (7-18)
[2017-08-05 07:15] LABS: ALANINE AMINOTRANSFERASE 18 U/L (12-78); ALBUMIN 3.1 g/dL (3.4-5.0); ALKALINE PHOSPHATASE 89 U/L (46-116); ASPARTATE AMINOTRANSFERASE 15 U/L (15-37); BILIRUBIN,TOTAL 0.5 mg/dL (0.1-1.0); TOTAL PROTEIN, SERUM 6.8 g/dL (6.4-8.2)
[2017-08-05 09:02] VITALS: BP 128/64
== END 2017-08-05 09:42 | disposition home or self-care (01) ==
LOC: EMS 01:12
DX: F25.9 Schizoaffective disorder, unspecified (principal); F17.210 Nicotine dependence, cigarettes, uncomplicated; J44.9 Chronic obstructive pulmonary disease, unspecified; E03.9 Hypothyroidism, unspecified; F19.90 Other psychoactive substance use, unspecified, uncomplicated; Z59.0 Homelessness; Z88.0 Allergy status to penicillin; Z88.6 Allergy status to analgesic agent
CPT/HCPCS: 36415; 80053; 85025; 99285; G0480

== ENCOUNTER 2017-08-06 02:10 | Emergency (ER) | payer MEDICARE ==
[~2017-08-06] VITALS: Ht 165.1 cm; Wt 59.0 kg
[2017-08-06 04:30] VITALS: BP 128/76
[2017-08-06] MEDS ORDERED: IBUPROFEN 600 MG TABLET PO ONE (04:30)
== END 2017-08-06 04:40 | disposition home or self-care (01) ==
LOC: EMS 02:11
DX: S62.616A Displaced fracture of proximal phalanx of right little finger, initial encounter for closed fracture (principal); J44.9 Chronic obstructive pulmonary disease, unspecified; E03.9 Hypothyroidism, unspecified; F17.210 Nicotine dependence, cigarettes, uncomplicated; F19.90 Other psychoactive substance use, unspecified, uncomplicated; Z88.0 Allergy status to penicillin; Z88.6 Allergy status to analgesic agent; Z59.0 Homelessness; W19.XXXA Unspecified fall, initial encounter; Y93.89 Activity, other specified; Y92.512 Supermarket, store or market as the place of occurrence of the external cause; Y99.8 Other external cause status
CPT/HCPCS: 99284